=== PATIENT | male | born 1980 | race Two or more races ===

== ENCOUNTER 2018-11-06 00:16 | Emergency (ER) | payer OTHER ==
[~2018-11-06] VITALS: Ht 170.2 cm; Wt 88.5 kg
== END 2018-11-06 06:26 | disposition home or self-care (01) ==
LOC: ER 00:16
DX: R00.2 Palpitations (principal)

== ENCOUNTER 2019-05-14 17:37 | Emergency (ER) | payer OTHER ==
[~2019-05-14] VITALS: Ht 172.7 cm; Wt 87.5 kg
== END 2019-05-15 01:22 | disposition home or self-care (01) ==
LOC: ER 17:37
DX: K59.09 Other constipation (principal)